=== PATIENT | male | born 1950 | race Caucasian/White ===

== ENCOUNTER 2017-06-26 07:52 | Inpatient (IN) | payer OTHER ==
[~2017-06-26] VITALS: Ht 185.4 cm; Wt 97.6 kg
[~2017-06-26 07:52] MED LIST: CLINDAMYCIN HC300 MG PO; COUMADIN1 MG PO; COUMADIN2.5 MG PO; COUMADIN5 MG PO; CYANOCOBAL1000 MCG/2 IM; DESOXIMETASONE15 G1 TP; DOCUSATE SODIU100 MG PO; FUROSEMIDE40 MG PO; K-DUR20 MEQ PO; LIPITOR20 MG PO; PERCOCET 5/31 TABLET PO; SANTYL30 GM TP; TYLENOL EXTRA500 MG PO; VITAMIN D250000 UNIT PO; ZOLPIDEM TARTRAT5 MG PO
[2017-06-26 08:37] LABS: EOSINOPHIL (%) 0.1 % (0-5); HEMATOCRIT 36.8 % (38.0-50.0); IMMATURE GRANULOCYTE (%) 0.7 % (0.0-0.7); IMMATURE GRANULOCYTE COUNT 0.1 K/uL; INSTRUMENT ABS NEUTROPHIL CT 16.6 K/uL; LYMPHOCYTE COUNT 0.3 K/uL (1.0-2.8); MCH 31.6 PG (29.0-34.0); MCHC 34.5 G/DL (30.0-36.0); MCV 91.5 FL (86-99); MEAN PLAT.VOLUME 7.9 uM^3 (9.0-12.4); MONOCYTE (%) 3.2 % (3-12); MONOCYTE COUNT 0.6 K/uL (0-0.8); NEUTROPHIL (%) 94.2 % (45-76); NEUTROPHIL COUNT 16.6 K/uL (1.8-6.4); PLATELET COUNT 284 K/uL (156-360); RBC DIS.WIDTH-CV 15.9 % (11.8-14.6); RBC DIS.WIDTH-SD 53.3 % (39-53); RED BLOOD COUNT 4.02 M/uL (4.00-5.50); WHITE BLOOD COUNT 17.6 K/uL (4.1-10.2)
[2017-06-26 08:43] LABS: PROTHROMBIN TIME 34.4 SEC (10.2-12.9)
[2017-06-26 08:45] LABS: PTT 38.3 SEC (25-37)
[2017-06-26 08:46] LABS: CHLORIDE 100 mEq/L (99-109); POTASSIUM 4.3 mEq/L (3.7-5.4); SODIUM 132 mEq/L (136-147)
[2017-06-26 08:48] LABS: GLUCOSE 100 mg/dL (70-99)
[2017-06-26 08:49] LABS: ANION GAP 11 MEQ/L (2-14)
[2017-06-26 08:52] LABS: GFR ESTIMATE (CALCULATED) 46 mL/min/
[2017-06-26 08:53] LABS: UREA NITROGEN (BUN) 16 mg/dL (9-23)
[2017-06-26 08:58] LABS: TROP-I INTERPRETATION NEGATIVE; TROPONIN-I < 0.01 ng/mL (0.0-0.30)
[2017-06-26 11:42] LABS: TROP-I INTERPRETATION NEGATIVE; TROPONIN-I < 0.01 ng/mL (0.0-0.30)
[2017-06-26] MEDS ORDERED: TYLENOL REGULA325 MG PO (12:06)
[2017-06-26] MEDS ORDERED: WARFARIN SODIUM5 MG PO (12:07)
[2017-06-26] MEDS ORDERED: METHOCARBAMOL500 MG PO (12:07)
[2017-06-26] MEDS ORDERED: OXYCODONE HCL5 MG PO (12:08)
[2017-06-26] MEDS ORDERED: WARFARIN SODIU2.5 MG PO (12:08)
[2017-06-27 00:34] VITALS: BP 117/62
[2017-06-27 04:00] VITALS: BP 129/76
[2017-06-27 06:00] LABS: HEMATOCRIT 33.2 % (38.0-50.0); MCH 31.7 PG (29.0-34.0); MCHC 33.7 G/DL (30.0-36.0); MCV 94.1 FL (86-99); MEAN PLAT.VOLUME 7.9 uM^3 (9.0-12.4); PLATELET COUNT 220 K/uL (156-360); RBC DIS.WIDTH-CV 16.2 % (11.8-14.6); RBC DIS.WIDTH-SD 55.9 % (39-53); RED BLOOD COUNT 3.53 M/uL (4.00-5.50); WHITE BLOOD COUNT 12.9 K/uL (4.1-10.2)
[2017-06-27 06:15] LABS: PROTHROMBIN TIME 23.4 SEC (10.2-12.9)
[2017-06-27 06:24] LABS: ALKALINE PHOSPHATASE 57 IU/L (3-129); ANION GAP 6 MEQ/L (2-14); CHLORIDE 99 MEQ/L (99-109); GFR ESTIMATE (CALCULATED) 49 mL/min/; GLUCOSE 101 mg/dL (70-99); POTASSIUM 4.4 MEQ/L (3.7-5.4); SAMPLE HEMOLYSIS CHECK 0; SAMPLE ICTERIC CHECK 0; SAMPLE LIPEMIA CHECK 0; SODIUM 130 MEQ/L (136-147); TOTAL BILIRUBIN 0.9 MG/DL (0.0-1.0); UREA NITROGEN (BUN) 21 mg/dL (9-23)
[2017-06-27 07:10] VITALS: BP 120/68
[2017-06-27 08:56] LABS: PTT 41.7 SEC (25-37)
[2017-06-27 15:00] VITALS: BP 143/87
[2017-06-27 23:48] VITALS: BP 138/83
[2017-06-28 06:16] LABS: INTER. NORMALIZED RATIO 1.8; PROTHROMBIN TIME 20.5 SEC (10.2-12.9)
[2017-06-28 07:00] VITALS: BP 160/86
[2017-06-28 15:10] VITALS: BP 138/74
[2017-06-28 23:18] VITALS: BP 137/66
[2017-06-29 06:52] LABS: INTER. NORMALIZED RATIO 1.9; PROTHROMBIN TIME 21.7 SEC (10.2-12.9)
[2017-06-29 07:29] VITALS: BP 156/85
[2017-06-29 16:06] VITALS: BP 168/90
[2017-06-29 23:35] VITALS: BP 146/87
[2017-06-30 06:15] LABS: INTER. NORMALIZED RATIO 2.2; PROTHROMBIN TIME 24.9 SEC (10.2-12.9)
[2017-06-30 07:48] VITALS: BP 154/95
[2017-06-30 16:24] VITALS: BP 148/90
[2017-06-30 23:06] VITALS: BP 150/81
[2017-07-01 06:14] LABS: EOSINOPHIL (%) 2.9 % (0-5); EOSINOPHIL COUNT 0.2 K/uL (0-0.3); HEMATOCRIT 39.7 % (38.0-50.0); IMMATURE GRANULOCYTE (%) 1.6 % (0.0-0.7); IMMATURE GRANULOCYTE COUNT 0.1 K/uL; INSTRUMENT ABS NEUTROPHIL CT 5.2 K/uL; MCH 31.7 PG (29.0-34.0); MCV 90.6 FL (86-99); MONOCYTE COUNT 0.7 K/uL (0-0.8); NEUTROPHIL (%) 71.4 % (45-76); NEUTROPHIL COUNT 5.2 K/uL (1.8-6.4); PLATELET COUNT 301 K/uL (156-360); RBC DIS.WIDTH-CV 15.2 % (11.8-14.6); RBC DIS.WIDTH-SD 50.4 % (39-53); RED BLOOD COUNT 4.38 M/uL (4.00-5.50); WHITE BLOOD COUNT 7.3 K/uL (4.1-10.2)
[2017-07-01 06:29] LABS: ANION GAP 8 MEQ/L (2-14); C-REACTIVE PROTEIN 87.4 MG/L (0-10); CHLORIDE 96 MEQ/L (99-109); GFR ESTIMATE (CALCULATED) > 59 mL/min/ (58.99-99999); GLUCOSE 92 mg/dL (70-99); HDL CHOLESTEROL 44 MG/DL (Desirable>=40); LDL CHOLESTEROL 128 mg/dL (Desirable<100); NON-HDL CHOLESTEROL 146 mg/dL (Desirable<160); POTASSIUM 4.5 MEQ/L (3.7-5.4); SAMPLE HEMOLYSIS CHECK 0; SAMPLE ICTERIC CHECK 0; SAMPLE LIPEMIA CHECK 0; SODIUM 130 MEQ/L (136-147); TOTAL CHOLESTEROL 190 mg/dL (Desirable<200); TRIGLYCERIDES 89 MG/DL (Normal: <150); UREA NITROGEN (BUN) 18 mg/dL (9-23)
[2017-07-01 06:31] LABS: INTER. NORMALIZED RATIO 2.6; PROTHROMBIN TIME 29.3 SEC (10.2-12.9)
[2017-07-01 06:55] VITALS: BP 158/91
== END 2017-07-01 15:46 | disposition home or self-care (01) | DRG 603 ==
LOC: EME 07:52 → 5EAST 15:00 → EDOF 15:00 → ENRESERV 15:13 → 5EAST 17:28
PROVIDERS: Emergency Medicine; Internal Medicine
DX: L03.115 Cellulitis of right lower limb (principal); L03.116 Cellulitis of left lower limb; I87.2 Venous insufficiency (chronic) (peripheral); I87.8 Other specified disorders of veins; L97.322 Non-pressure chronic ulcer of left ankle with fat layer exposed; L97.312 Non-pressure chronic ulcer of right ankle with fat layer exposed; E86.0 Dehydration; E87.1 Hypo-osmolality and hyponatremia; I73.9 Peripheral vascular disease, unspecified; R07.9 Chest pain, unspecified; R11.0 Nausea; R42 Dizziness and giddiness; R55 Syncope and collapse; I12.9 Hypertensive chronic kidney disease with stage 1 through stage 4 chronic kidney disease, or unspecified chronic kidney disease; N18.3 Chronic kidney disease, stage 3 (moderate); E53.8 Deficiency of other specified B group vitamins; E55.9 Vitamin D deficiency, unspecified; I89.0 Lymphedema, not elsewhere classified; J43.9 Emphysema, unspecified; D64.9 Anemia, unspecified; E78.5 Hyperlipidemia, unspecified; K21.9 Gastro-esophageal reflux disease without esophagitis; Z72.0 Tobacco use; Z79.01 Long term (current) use of anticoagulants; Z86.718 Personal history of other venous thrombosis and embolism
CPT/HCPCS: 71010; 71250; 80048; 80053; 80061; 83605; 83880; 84484; 85025; 85027; 85610; 85730; 86140; 87040; 93005; 93970; 94799; 99281; 99285; J0696

== ENCOUNTER 2017-08-04 11:30 | Inpatient (IN) | payer OTHER ==
[~2017-08-04] VITALS: Ht 185.4 cm; Wt 96.3 kg
[~2017-08-04 11:30] MED LIST changes: +METHOCARBAMOL500 MG PO; +OXYCODONE HCL5 MG PO; +TYLENOL REGULA325 MG PO; +WARFARIN SODIU2.5 MG PO; +WARFARIN SODIUM5 MG PO
[2017-08-04 16:29] LABS: HEMOGLOBIN 12.9 G/DL (12.5-16.6); MCH 32.5 PG (29.0-34.0); MCHC 35.8 G/DL (30.0-36.0); MCV 90.7 FL (86-99); PLATELET COUNT 234 K/uL (156-360); RBC DIS.WIDTH-CV 15.8 % (11.8-14.6); RBC DIS.WIDTH-SD 51.9 % (39-53); RED BLOOD COUNT 3.97 M/uL (4.00-5.50); WHITE BLOOD COUNT 10.8 K/uL (4.1-10.2)
[2017-08-04 16:42] LABS: CHLORIDE 96 mEq/L (99-109); POTASSIUM 4.3 mEq/L (3.7-5.4); SODIUM 127 mEq/L (136-147)
[2017-08-04] MEDS ORDERED: NIZORAL 2% CREA15 GM TP (16:43)
[2017-08-04] MEDS ORDERED: VITAMIN D31000 UNIT PO (16:43)
[2017-08-04] MEDS ORDERED: AMLODIPINE BESYL5 MG PO (16:43)
[2017-08-04 16:44] LABS: GLUCOSE 104 mg/dL (70-99)
[2017-08-04 16:48] LABS: CREATININE 1.8 mg/dL (0.6-1.3); GFR ESTIMATE (CALCULATED) 40 mL/min/ (58.99-99999)
[2017-08-04 16:49] LABS: UREA NITROGEN (BUN) 33 mg/dL (9-23)
[2017-08-04 22:55] VITALS: BP 117/60
[2017-08-05 06:56] LABS: INTER. NORMALIZED RATIO 2.1
[2017-08-05 07:02] LABS: ALBUMIN 2.8 G/DL (3.2-4.8); ALKALINE PHOSPHATASE 59 IU/L (3-129); ALT (GPT) 16 IU/L (3-49); AST (GOT) 23 IU/L (2-34); CHLORIDE 101 MEQ/L (99-109); GLUCOSE 98 mg/dL (70-99); POTASSIUM 3.8 MEQ/L (3.7-5.4); SODIUM 131 MEQ/L (136-147); TOTAL BILIRUBIN 0.5 MG/DL (0.0-1.0); TOTAL PROTEIN 5.8 G/DL (6.4-8.3); UREA NITROGEN (BUN) 28 mg/dL (9-23)
[2017-08-05 07:06] LABS: CREATININE 1.3 MG/DL (0.6-1.3); GFR ESTIMATE (CALCULATED) 58 mL/min/ (58.99-99999)
[2017-08-05 07:16] LABS: HEMATOCRIT 29.4 % (38.0-50.0); MCH 31.9 PG (29.0-34.0); PLATELET COUNT 240 K/uL (156-360); RBC DIS.WIDTH-CV 15.8 % (11.8-14.6); RBC DIS.WIDTH-SD 52.3 % (39-53); RED BLOOD COUNT 3.23 M/uL (4.00-5.50); WHITE BLOOD COUNT 6.6 K/uL (4.1-10.2)
[2017-08-05 07:28] LABS: HEMOGLOBIN 10.3 G/DL (12.5-16.6)
[2017-08-05 08:29] VITALS: BP 124/70
[2017-08-05 23:14] VITALS: BP 117/64
[2017-08-06 06:10] LABS: INTER. NORMALIZED RATIO 2.2
[2017-08-06 07:30] VITALS: BP 148/79
[2017-08-06 15:59] VITALS: BP 139/68
[2017-08-06 19:17] VITALS: BP 144/75
[2017-08-06 23:48] VITALS: BP 153/73
[2017-08-07 06:32] LABS: BASOPHIL (%) 0.5 % (0-1); EOSINOPHIL (%) 3.6 % (0-5); EOSINOPHIL COUNT 0.2 K/uL (0-0.3); HEMATOCRIT 35.7 % (38.0-50.0); HEMOGLOBIN 12.1 G/DL (12.5-16.6); LYMPHOCYTE (%) 14.4 % (15-42); LYMPHOCYTE COUNT 0.8 K/uL (1.0-2.8); MCH 31.2 PG (29.0-34.0); MCHC 33.9 G/DL (30.0-36.0); MONOCYTE (%) 8.4 % (3-12); MONOCYTE COUNT 0.5 K/uL (0-0.8); NEUTROPHIL (%) 72.1 % (45-76); NEUTROPHIL COUNT 4.2 K/uL (1.8-6.4); PLATELET COUNT 258 K/uL (156-360); RBC DIS.WIDTH-CV 15.5 % (11.8-14.6); RBC DIS.WIDTH-SD 52.3 % (39-53); WHITE BLOOD COUNT 5.8 K/uL (4.1-10.2)
[2017-08-07 06:33] LABS: INTER. NORMALIZED RATIO 2.2
[2017-08-07 06:34] LABS: RED BLOOD COUNT 3.88 M/uL (4.00-5.50)
[2017-08-07 06:46] LABS: CHLORIDE 101 MEQ/L (99-109); CREATININE 1.1 MG/DL (0.6-1.3); GFR ESTIMATE (CALCULATED) > 59 mL/min/ (58.99-99999); GLUCOSE 85 mg/dL (70-99); POTASSIUM 4.5 MEQ/L (3.7-5.4); SODIUM 135 MEQ/L (136-147); UREA NITROGEN (BUN) 13 mg/dL (9-23)
[2017-08-07 06:53] VITALS: BP 138/85
[2017-08-07 16:01] VITALS: BP 166/83
[2017-08-07 23:23] VITALS: BP 145/79
[2017-08-08 06:35] LABS: INTER. NORMALIZED RATIO 2.4
[2017-08-08 08:37] VITALS: BP 150/85
[2017-08-08 15:00] VITALS: BP 138/78
[2017-08-08 22:56] VITALS: BP 132/68
[2017-08-09 06:17] LABS: BASOPHIL (%) 0.8 % (0-1); BASOPHIL COUNT 0.1 K/uL (0-0.1); EOSINOPHIL (%) 4.1 % (0-5); EOSINOPHIL COUNT 0.3 K/uL (0-0.3); HEMATOCRIT 36.1 % (38.0-50.0); HEMOGLOBIN 12.7 G/DL (12.5-16.6); IMMATURE GRANULOCYTE (%) 1.9 % (0.0-0.7); LYMPHOCYTE (%) 17.4 % (15-42); LYMPHOCYTE COUNT 1.1 K/uL (1.0-2.8); MCH 32.2 PG (29.0-34.0); MCHC 35.2 G/DL (30.0-36.0); MCV 91.6 FL (86-99); MONOCYTE (%) 10.2 % (3-12); MONOCYTE COUNT 0.6 K/uL (0-0.8); NEUTROPHIL (%) 65.6 % (45-76); NEUTROPHIL COUNT 4.1 K/uL (1.8-6.4); PLATELET COUNT 306 K/uL (156-360); RBC DIS.WIDTH-CV 15.1 % (11.8-14.6); RBC DIS.WIDTH-SD 51.2 % (39-53); RED BLOOD COUNT 3.94 M/uL (4.00-5.50); WHITE BLOOD COUNT 6.3 K/uL (4.1-10.2)
[2017-08-09 06:54] LABS: CHLORIDE 101 MEQ/L (99-109); CREATININE 1.1 MG/DL (0.6-1.3); GFR ESTIMATE (CALCULATED) > 59 mL/min/ (58.99-99999); GLUCOSE 83 mg/dL (70-99); POTASSIUM 4.5 MEQ/L (3.7-5.4); SODIUM 133 MEQ/L (136-147); UREA NITROGEN (BUN) 18 mg/dL (9-23)
[2017-08-09 08:27] VITALS: BP 152/82
[2017-08-09 15:47] VITALS: BP 126/67
[2017-08-09 22:52] VITALS: BP 124/77
[2017-08-10 06:22] LABS: INTER. NORMALIZED RATIO 2.9
[2017-08-10 07:41] VITALS: BP 135/88
[2017-08-10 15:58] VITALS: BP 124/67
[2017-08-10 23:25] VITALS: BP 123/61
[2017-08-11 06:53] VITALS: BP 139/63
[2017-08-11] MEDS ORDERED: KEFLEX500 MG PO (12:39)
[2017-08-11] MEDS ORDERED: PRAVASTATIN SOD40 MG PO (12:42)
[2017-08-11 14:55] VITALS: BP 133/82
== END 2017-08-11 15:51 | disposition home or self-care (01) | DRG 603 ==
LOC: EME 11:30 → EDOF 19:37 → 5EAST 19:37 → ENRESERV 19:38 → 5EAST 22:11
PROVIDERS: Internal Medicine; Nurse Practitioner Family
DX: L03.115 Cellulitis of right lower limb (principal); J43.9 Emphysema, unspecified; K21.9 Gastro-esophageal reflux disease without esophagitis; F10.10 Alcohol abuse, uncomplicated; E78.5 Hyperlipidemia, unspecified; I10 Essential (primary) hypertension; I73.9 Peripheral vascular disease, unspecified; I87.2 Venous insufficiency (chronic) (peripheral); L97.929 Non-pressure chronic ulcer of unspecified part of left lower leg with unspecified severity; L97.919 Non-pressure chronic ulcer of unspecified part of right lower leg with unspecified severity; D64.9 Anemia, unspecified; E87.1 Hypo-osmolality and hyponatremia; I80.9 Phlebitis and thrombophlebitis of unspecified site; I89.0 Lymphedema, not elsewhere classified; L30.9 Dermatitis, unspecified; R60.9 Edema, unspecified; K62.9 Disease of anus and rectum, unspecified; Z87.891 Personal history of nicotine dependence; Z79.01 Long term (current) use of anticoagulants; N17.9 Acute kidney failure, unspecified; D72.829 Elevated white blood cell count, unspecified; Z86.718 Personal history of other venous thrombosis and embolism; I87.8 Other specified disorders of veins
CPT/HCPCS: 71046; 80048; 80053; 82948; 85025; 85027; 85610; 87040; 87070; 87075; 87077; 87147; 87186; 87205; 94799; 99281; 99284; J0690; J0696; J3370; J7030

== ENCOUNTER → 2017-09-28 | Outpatient (CLI) | payer OTHER ==
[~2017-09-28] VITALS: Ht 185.4 cm; Wt 109.3 kg
[~2017-09-28] MED LIST changes: +AMLODIPINE BESYL5 MG PO; +JANTOVEN5 MG PO; +KEFLEX500 MG PO; +NIZORAL 2% CREA15 GM TP; +PRAVASTATIN SOD40 MG PO; +VITAMIN D31000 UNIT PO
[2017-09-28 08:33] LABS: INTER. NORMALIZED RATIO 1.2
[2017-09-28 08:35] LABS: PTT 24.5 SEC (25-37)
== END | disposition home or self-care (01) ==
LOC: AMB 07:17
PROVIDERS: Internal Medicine Gastroenterology
DX: D12.2 Benign neoplasm of ascending colon (principal); D12.4 Benign neoplasm of descending colon; C44.520 Squamous cell carcinoma of anal skin; K64.8 Other hemorrhoids; K64.4 Residual hemorrhoidal skin tags; K57.30 Diverticulosis of large intestine without perforation or abscess without bleeding; D64.9 Anemia, unspecified; Z87.891 Personal history of nicotine dependence; Z79.01 Long term (current) use of anticoagulants
CPT/HCPCS: 74330; 85610; 85730; 88305